=== PATIENT | female | born 1950 | race Caucasian/White ===

== ENCOUNTER 2016-05-08 07:35 | Outpatient (CLI) | payer OTHER ==
[2015-11-21 10:24] VITALS: BP 114/64
[2016-05-08 08:08] LABS: BASOPHILS % 0.2 (0.0-1.5); EOSINOPHILS % 0.8 % (0.0-6.8); MEAN CORPUSCULAR HEMOGLOBIN 32.4 pg (28.0-34.0); MONOCYTES # 0.3 # k/uL (0.0-0.9); NEUTROPHILS # 3.7 # k/uL (1.4-7.7)
[2016-05-08 08:39] LABS: eGFR (African) > 60; eGFR (Non-African) > 60
--- NOTE | 2016-05-08 13:40 | Diagnostic Imaging Report ---
[facility] [address] [facility].[address] [address] Report Submission Date: May 08, 2016 10:57:39 AM DAYCARE DIRECTOR Patient Study Name: SHARATH ALMANZA Date: May 08, 2016 10:01:20 AM DAYCARE DIRECTOR Modality Type: CT\SR Gender: F Description: CT CHEST W/ CONTRAST : 52 Institution: [facility] Physician PAMELA GAONA - OP CT of the chest, abdomen and pelvis with contrast CLINICAL HISTORY: Abdominal pain. Weight loss and dyspnea. Contrast administered: 82 mL of Omnipaque 300. TECHNIQUE: CT of the chest, abdomen and pelvis is performed in contiguous axial slices with sagittal and coronal reconstructions. FINDINGS: Lungs are free of coalescent infiltrate. Central airways are patent. Vascular structures enhance normally. Vascular calcification is present in the thoracic aorta. There is no mediastinal or hilar mass or significant adenopathy. The liver and spleen demonstrate normal attenuation without focal defect. The gallbladder is normally distended. There is no pancreatic or adrenal abnormality. The kidneys demonstrate symmetric enhancement. Vascular calcification is present in the abdominal aorta without evidence of aneurysm. The appendix is visualized and is within normal limits. Bladder is unremarkable. Uterus and adnexal structures are within normal limits. There is no free fluid in the pelvis or abdomen. Mild spondylitic changes are seen in the thoracolumbar spine. IMPRESSION: Vascular calcification. Mild thoracolumbar spondylosis and scoliosis. Electronically signed on May 08, 2016 10:57:39 AM DAYCARE DIRECTOR by: Ambrocio TRAN
== END 2016-05-08 07:36 ==
LOC: RAD 07:35
PROVIDERS: ATTEND Family Medicine
DX: R63.4 Abnormal weight loss (principal); E78.2 Mixed hyperlipidemia; E03.9 Hypothyroidism, unspecified; R10.84 Generalized abdominal pain; R06.02 Shortness of breath
CPT/HCPCS: 36415; 71260; 74177; 80053; 80061; 84443; 85025; Q9966; A9698

== ENCOUNTER 2016-08-23 11:16 | Outpatient (CLI) | payer OTHER ==
[2015-11-21 10:24] VITALS: BP 114/64
[2016-08-23 12:28] LABS: eGFR (African) > 60; eGFR (Non-African) > 60
[2016-08-23 12:49] LABS: BASOPHILS % 0.6 (0.0-1.5); EOSINOPHILS % 0.3 % (0.0-6.8); MEAN CORPUSCULAR VOLUME 93.9 fl (80.0-100.0); MONOCYTES % 4.3 % (0.0-11.0); NEUTROPHILS # 4.7 # k/uL (1.4-7.7)
--- NOTE | 2016-08-23 15:30 | Diagnostic Imaging Report ---
[facility] [address] [facility].[address] [address] Report Submission Date: August 23, 2016 2:40:56 PM CDT Patient Study Name: SHARATH ALMANZA Date: August 23, 2016 11:44:30 AM CDT Modality Type: CR Gender: F Description: CHEST : 51 Institution: [facility] Physician PAMELA GAONA - OP Chest -two views CLINICAL HISTORY: Unexplained weight loss. FINDINGS: Examination of the chest in PA and lateral views demonstrates the lungs to be hyperinflated but clear. Cardiac silhouette is within normal limits and the aorta is atherosclerotic. Mild degenerative changes are seen in the thoracic vertebrae. IMPRESSION: Aortic atherosclerosis. Hyperinflation. Thoracic spondylosis. Electronically signed on August 23, 2016 2:40:56 PM CDT by: Ambrocio TRAN
== END 2016-08-23 11:17 ==
LOC: LAB 11:16
PROVIDERS: ATTEND Family Medicine
DX: R63.4 Abnormal weight loss (principal)
CPT/HCPCS: 36415; 71020; 80053; 84443; 85025

== ENCOUNTER 2016-09-25 04:04 | Emergency (ER) | payer OTHER ==
[2016-09-25] MEDS ORDERED: DIPH,PERTUSS(ACELL),TET VAC/PF 0.5 ML DISP.SYRIN IM ONE ×2 (04:08→04:38)
[2016-09-25] MEDS ORDERED: DIAZEPAM 5 MG/ML DISP.SYRIN IM ONE ×2 (04:10→04:12)
[2016-09-25] MEDS ORDERED: DIAZEPAM 5 MG/ML DISP.SYRIN ONE (04:14)
[2016-09-25] MEDS ORDERED: LEVOFLOXACIN 500 MG TABLET PO ONE ×2 (05:10→05:11)
--- NOTE | 2016-09-25 05:12 | ED Physician Documentation ---
General Adult - HISTORIAN Historian: patient, paramedics - HPI Stated Complaint: fall, L shoulder pain Chief Complaint: General Adult Onset: minutes Timing: still present Severity: moderate Further Comments: yes (Pt is a 66 yo female [facility] pt with Parkinson's, who fell and has pain in L shoulder. Pt hit her head lightly on the R side, but she did not strike the edge of a nearby table she says, and only hit it lightly on the carpeted floor. She has not marques or abrasions on her head. No neck pain. Pt has some spasming in her L shoulder and a superficial abrasion on her R elbow.) - ROS CONST: no problems EYES/ENT: none CVS/RESP: none GI/: none MS/SKIN/LYMPH: other (superficial abrasion R elbow/forearm) - PAST HX Past History: other (HLD, HTN, GERD, Parkinson's) Allergies/Adverse Reactions: Allergies Allergy/AdvReac Type Severity Reaction Status Date / Time Penicillins AdvReac Unknown Anaphylaxis Verified 09/25/16 04:12 Sulfa (Sulfonamide AdvReac Unknown Anaphylaxis Verified 09/25/16 04:12 Antibiotics) - SOCIAL HX Smoking History: non-smoker - FAMILY HX Family History: No - VITAL SIGNS Vital Signs: Vital Signs Temp Pulse Resp BP Pulse Ox 114/64 11/21/15 10:21 - REVIEWED ASSESSMENTS Nursing Assessment Reviewed: Yes Vitals Reviewed: Yes Progress - Progress Progress: Tdap 0.5 ml IM Diazepam 5 mg IM ED Results Lab/Radiology - Orders Orders: ED Orders Category Date Time Status Diazepam [Valium] Med 09/25/16 04:14 Discontinued 5 mg .ROUTE .STK-MED ONE Diazepam [Valium] Med 09/25/16 04:10 Discontinued 5 mg IM NOW ONE Diazepam [Valium] Med 09/25/16 04:12 Discontinued 5 mg IM NOW ONE Diph,Pertuss(Acell),Tet Vac/Pf [Adacel] Med 09/25/16 04:08 Discontinued 0.5 ml IM .ONCE ONE General Adult Physical Exam - PHYSICAL EXAM GENERAL APPEARANCE: mild distress EENT: eye inspection normal, pharynx normal NECK: normal inspection, supple RESPIRATORY: no resp distress, chest non-tender, breath sounds normal CVS: reg rate & rhythm, heart sounds normal ABDOMEN: soft, no organomegaly, normal bowel sounds BACK: normal inspection, no CVA tenderness SKIN: other (superficial abrasion R elbow/forearm) EXTREMITIES: other (muscle spasm L shoulder over scapula) NEURO: oriented X3, other (baseline neuro status) Discharge Clincal Impression: fall, superficial abrasion R elbow, muscle spasm L upper back/shoulder, UTI Referrals: Joceline Penn MD [Primary Care Provider] - Condition: Stable Disposition: 04 [facility] USP Decision to Admit: NO Decision Time: 05:12
[2016-09-25 05:37] LABS: COLOR,URINE YELLOW (YELLOW)
[2016-09-25 05:38] LABS: APPEARANCE,URINE CLOUDY (CLEAR); OCCULT BLOOD,URINE NEGATIVE (NEGATIVE); PH URINE 8.5 (5.0 - 8.0); UROBILINOGEN URINE 0.2 Eu (0.2-1.0)
[2016-09-25 05:47] VITALS: BP 127/78
== END 2016-09-25 05:21 ==
LOC: ED 04:04
DX: S50.311A Abrasion of right elbow, initial encounter (principal); W19.XXXA Unspecified fall, initial encounter; Y93.9 Activity, unspecified; Y99.9 Unspecified external cause status; M62.830 Muscle spasm of back; N39.0 Urinary tract infection, site not specified
CPT/HCPCS: 81002; 87086; 87186; 90715; 99284; J3360

== ENCOUNTER 2017-04-02 10:50 | Emergency (ER) | payer OTHER ==
--- NOTE | 2017-04-02 11:41 | ED Physician Documentation ---
Wheezing - HISTORIAN Historian: patient, child (and grandson) - HPI Stated Complaint: short of breath Chief Complaint: Dyspnea Additional Information: This is a 66 year old female with an established history of anxiety and COPD. She says that she knew that it was her nerves when it started, however until the ambulance arrived, it got progressively worse. She is now breathing normally. Onset: hours Duration: gone now Initiating Event: other (anxiety). denies: upper respiratory illness, out of meds, sports, exercise, environmental allergy Associated Symptoms:: trouble breathing. denies: fever, sweating, shortness of breath Current Asthma Therapy: inhaled nebulizer Further Comments: no - ROS CONST: no problems EYES/ENT: denies: eye redness CVS: denies: heart racing, palpitations GI/: denies: none MS/SKIN/LYMPH: denies: ankle swelling NEURO/PSYCH: anxiety. denies: headache, dizziness - PAST HX Asthma: occasional attacks Lung Disease: COPD DVT/PE Risk Factors: none Other History: denies: cardiac disease Surgeries/Procedures: other (cervical conization) Allergies/Adverse Reactions: Allergies Allergy/AdvReac Type Severity Reaction Status Date / Time Penicillins AdvReac Unknown Anaphylaxis Verified 04/02/17 11:13 Sulfa (Sulfonamide AdvReac Unknown Anaphylaxis Verified 04/02/17 11:13 Antibiotics) - SOCIAL HX Smoking History: non-smoker Alcohol Use: none Drug Use: none - FAMILY HX Family History: denies: emphysema - VITAL SIGNS Vital Signs: Vital Signs Temp Pulse Resp BP Pulse Ox 98 F 79 18 102/62 99 04/02/17 10:50 04/02/17 10:50 04/02/17 10:50 04/02/17 10:50 04/02/17 10:50 - REVIEWED ASSESSMENTS Nursing Assessment Reviewed: Yes Vitals Reviewed: Yes Wheezing Physical Exam - EXAM General Appearance: no acute distress, alert EENT: eye inspection normal, ENT inspection normal, no nystagmus Neck: nml inspection Respiratory: no resp. distress, breath sounds nml, no pain on inspiration, speaks full sentences CVS: reg rate & rhythm, heart sounds normal, equal pulses Abdomen: non-tender, no organomegaly Skin: color nml Extremities: non-tender, normal range of motion, no evidence of injury Neuro/Psych: oriented x3, neuro intact Discharge Clincal Impression: Anxiety Referrals: Joceline Penn MD [Primary Care Provider] - 2 Days Condition: Good Disposition: 01 HOME, SELF-CARE Decision to Admit: NO Date of Decison to Admit: 04/02/17 Decision Time: 11:56
[2017-04-02 13:09] VITALS: BP 118/67
== END 2017-04-02 12:10 | disposition home or self-care (01) ==
LOC: ED 10:50
DX: F41.9 Anxiety disorder, unspecified (principal)
CPT/HCPCS: 99283

== ENCOUNTER 2017-07-18 07:35 | Emergency (ER) | payer OTHER ==
--- NOTE | 2017-07-18 07:42 | ED Physician Documentation ---
General Adult - HISTORIAN Historian: patient - HPI Stated Complaint: confusion Chief Complaint: Altered Mental Status Onset: other (shes not sure but is certain of seeing a family in her home last night ) Timing: better Severity: mild Further Comments: yes (she states that she has had some issues with "odd feelings" but states that she feels that is from the Parkinson's - she reports she read that disease can change you mental status at times. She states that last night she was up and noticed a family her in living room and they moved her kitchen table out and moved their kitchen table in the kitchen. She is not sure where her kitchen table out. She is confused at first on timing of when she did see the people in her house . She reports her did two months ago. She states she is not eating much and drinking less) - ROS CONST: no problems EYES/ENT: none CVS/RESP: none GI/: none MS/SKIN/LYMPH: none NEURO/PSYCH: depression, other (confusion and ) - PAST HX Past History: other (parkinson's disease, insomina, hypothyroidism, depression ) Other History: none Surgeries/Procedures: other Immunizations: UTD Allergies/Adverse Reactions: Allergies Allergy/AdvReac Type Severity Reaction Status Date / Time Penicillins AdvReac Unknown Anaphylaxis Verified 07/18/17 08:14 Sulfa (Sulfonamide AdvReac Unknown Anaphylaxis Verified 07/18/17 08:14 Antibiotics) Home Medications: Ambulatory Orders Medication Instructions Recorded Carbidopa/Levodopa [Carbidopa-Levo 1 tab PO QID 07/18/17 25-100 mg Odt] - SOCIAL HX Smoking History: non-smoker Alcohol Use: none Drug Use: none - FAMILY HX Family History: No - VITAL SIGNS Vital Signs: Vital Signs Temp Pulse Resp BP Pulse Ox 118/67 04/02/17 13:01 - REVIEWED ASSESSMENTS Nursing Assessment Reviewed: Yes Vitals Reviewed: Yes Progress - Progress Progress: 0900: results discussed with pt and daughter - Dr Penn states the pt has issues with hallucinations and should discuss further with specialist . DG General Adult Physical Exam - PHYSICAL EXAM GENERAL APPEARANCE: no distress EENT: eye inspection normal, JESSIE NECK: normal inspection, thyroid normal RESPIRATORY: no resp distress, chest non-tender, breath sounds normal CVS: reg rate & rhythm, heart sounds normal, equal pulses, no murmur ABDOMEN: soft, normal bowel sounds, no distension, non-tender BACK: normal inspection SKIN: warm/dry, normal color EXTREMITIES: non-tender, normal range of motion, no evidence of injury, no edema NEURO: oriented X3, CN's nml as tested, motor nml, sensation nml, mood/affect nml, cognition normal (although discussion she does know she was confused last night ) Discharge Clincal Impression: Hallucinations Referrals: Joceline Penn MD [Primary Care Provider] - 2 Days Comments: 1. Follow up with specialist for increased symptoms 2. Increase intake 3. Return to ER for any increasing concerns Condition: Stable Disposition: 01 HOME, SELF-CARE Decision to Admit: NO Date of Decison to Admit: 07/18/17 Decision Time: 09:26
[2017-07-18] MEDS ORDERED: 0.9 % SODIUM CHLORIDE 1,000 ML IV ONE (07:54)
[2017-07-18 07:56] VITALS: BP 103/68
[2017-07-18 08:21] LABS: BASOPHILS % 0.2 (0.0-1.5); EOSINOPHILS % 0.8 % (0.0-6.8); MEAN CORPUSCULAR HEMOGLOBIN 31.5 pg (28.0-34.0); MEAN CORPUSCULAR VOLUME 91.7 fl (80.0-100.0); NEUTROPHILS # 3.8 # k/uL (1.4-7.7)
[2017-07-18 08:43] LABS: APPEARANCE,URINE CLEAR (CLEAR); COLOR,URINE YELLOW (YELLOW); OCCULT BLOOD,URINE NEGATIVE (NEGATIVE); PH URINE 7.5 (5.0 - 8.0); UROBILINOGEN URINE 0.2 Eu (0.2-1.0)
[2017-07-18 08:50] LABS: eGFR (African) > 60; eGFR (Non-African) > 60
[2017-07-18 10:50] LABS: CANNABINOIDS NEGATIVE ng/mL (< 50); METHYLENEDIOXYMETHAMPHETAMINE NEGATIVE ng/mL (<500)
--- NOTE | 2017-07-18 19:46 | Diagnostic Imaging Report ---
SISSY GREENE~ [facility] [address] [facility] [address] [place], [place]. [address] ~ ~ ~ ~ Report Submission Date: Jul 18, 2017 9:02:01 AM CDT Patient ~ Study Name: SHARATH ALMANZA ~ Date: Jul 18, 2017 8:13:06 AM CDT ~ Modality Type: CT\SR Gender: F ~ Description: CT BRAIN W/O CONTRAST : 52 ~ Institution: [facility] Physician: SISSY GREENE ~ ~ ~ Examination: CT head without contrast History:~CT HEAD W/O, CONFUSION TODAY, PT STATES SHE SAW PEOPLE IN HER HOUSE THAT WERE NOT ACTUALLY THERE (Hx) Comparison exam: None available Technique: Noncontrast head CT protocol. Findings: Ventricles and sulci are prominent, though consistent for patient age. Cerebrocerebellar parenchyma demonstrates periventricular low attenuation consistent with small vessel disease. No evidence for parenchymal hemorrhage. No evidence for mass or mass effect. No midline shift. No extra axial fluid collections. Partial visualization of the paranasal sinuses, mastoid air cells, orbits, skull and scalp without gross irregularity. Streak artifact from dental hardware. Impression: Age related changes. No acute parenchymal process. No hemorrhage. ~ Electronically signed on Jul 18, 2017 9:02:01 AM CDT by: Abner TRAN
== END 2017-07-18 09:53 | disposition home or self-care (01) ==
LOC: ED 07:35
DX: R41.82 Altered mental status, unspecified (principal); G20 Parkinson's disease; F32.9 Major depressive disorder, single episode, unspecified
CPT/HCPCS: 70450; 80053; 81002; 82140; 85025; 85610; 87086; 93005; G0481; J7030; 80377; 96365; 96366; 99284; S1016

== ENCOUNTER 2017-10-05 21:24 | Emergency (ER) | payer OTHER ==
--- NOTE | 2017-10-05 21:38 | ED Physician Documentation ---
Fall - HISTORIAN Historian: patient - HPI Stated Complaint: fall and hit head Chief Complaint: Fall Onset: just prior to arrival Where: home Context: slipped, lost balance (due to history of parkinsons she states she does loose balance ) r: mild Associated Symptoms:: no loss of consciousness Location of Pain/Injury: head Injury to Right Extremity: none Injury to Left Extremity: none Further Comments: yes (she states she does get off balance quite often due to parkinsons. She reports approx 1 hour ago she was walking and "just tipped over " denies any dizziness or other issues causing the fall. She did hit the back of her head. Denies any LOC. She states the area where she hit on her head is sore to touch but denies any headache, no N/V or other symtpoms) - ROS CONST: no problems NEURO: denies: dizziness, anxiety, depression MS/SKIN/LYMPH: denies: weakness, numbness, neck pain, back pain, ankle swelling , leg swelling, rash EYES/ENT: denies: problems with vision CVS/RESP: denies: shortness of breath GI/: denies: nausea, vomiting - PAST HX Past History: other (parkinsons - hyperlipidemia ) Immunizations: UTD Allergies/Adverse Reactions: Allergies Allergy/AdvReac Type Severity Reaction Status Date / Time Penicillins AdvReac Unknown Anaphylaxis Verified 10/05/17 21:35 Sulfa (Sulfonamide AdvReac Unknown Anaphylaxis Verified 10/05/17 21:35 Antibiotics) Home Medications: Ambulatory Orders Medication Instructions Recorded Carbidopa/Levodopa [Carbidopa-Levo 1 tab PO QID 07/18/17 25-100 mg Odt] - SOCIAL HX Smoking History: non-smoker Alcohol Use: none Drug Use: none - FAMILY HX Family History: none - VITAL SIGNS Vital Signs: Vital Signs Temp Pulse Resp BP Pulse Ox 103/68 07/18/17 09:53 - REVIEWED ASSESSMENTS Nursing Assessment Reviewed: Yes Vitals Reviewed: Yes Progress - Progress Progress: 2230: results discussed with pt and daughter at bedside. No questions. Plan discussed and they are agreeable DG ED Results Lab/Radiology - Radiology Radiology Impressions: Computed tomography head without contrast History: Fall with posterior head injury Findings: Transverse brain sections are obtained without contrast. The prior exam has not been provided for comparison. There is no visible scalp hematoma. Mild global brain atrophy is present. Durant- white differentiation is intact. There is no intracranial hemorrhage. The skull is intact. Visualized sinuses and mastoid air cells are clear. Impression: Mild brain atrophy. Electronically signed on Oct 05, 2017 10:27:15 PM CDT by: Adama michael Parks Physical Exam - Physical Exam General Appearance: no acute distress, alert Head: non-tender, no swelling, no obvious injury Neck: non-tender, painless ROM Eye: JESSIE ENT: nml external inspection, no oral injury, airway nml Resp/CVS: chest non-tender, no ecchymosis, breath sounds nml, no resp. distress , heart sounds nml Abdomen: soft, no organomegaly, normal bowel sounds, no distension Neuro: oriented x3, CN's nml as tested, sensation nml, motor nml, mood/affect nml, direct care specialist nml, reflexes nml, direct care specialist symmetrical Skin: color nml, no rash Back: normal inspection, no CVA tenderness, no vertebral tenderness Extremities: atraumatic, pelvis stable, hips non-tender, no pedal edema, nml ROM , nml color/temp Joint: joints nml, nml ROM, Nml gait/weight bearing - Chayo Coma Score Eyes Open: Spontaneous Speech: Oriented Motor: Obeys Commands Discharge Clincal Impression: Fall Qualifiers: Encounter type: initial encounter Qualified Code(s): W19.XXXA - Unspecified fall, initial encounter Head injury Qualifiers: Encounter type: initial encounter Qualified Code(s): S09.90XA - Unspecified injury of head, initial encounter Referrals: Joceline Penn MD [Primary Care Provider] - 2 Days Additional Instructions: 1. Tylenol or Ibuprofen for pain as directed 2. Move positions slowly 3. Monitor for any further symptoms of concern. N/V or mood changes, weakness or other concerns 4. See PCP in 2-4 days for follow up 5. Return to ER for any concerns Condition: Stable Disposition: 01 HOME, SELF-CARE Decision to Admit: NO Date of Decison to Admit: 10/05/17 Decision Time: 22:30
[2017-10-05 22:30] LABS: BASOPHILS % 0.5 (0.0-1.5); MEAN CORPUSCULAR HEMOGLOBIN 32.3 pg (28.0-34.0); MEAN CORPUSCULAR VOLUME 94.8 fl (80.0-100.0); MONOCYTES % 6.6 % (0.0-11.0); NEUTROPHILS # 3.3 # k/uL (1.4-7.7)
[2017-10-05 22:34] LABS: eGFR (African) > 60; eGFR (Non-African) > 60
--- NOTE | 2017-10-05 22:37 | Diagnostic Imaging Report ---
[facility] [address] [facility] [address] [place] [address]. [id number] Report Submission Date: Oct 05, 2017 10:27:15 PM CDT Patient Study Name: SHARATH ALMANZA Date: Oct 05, 2017 10:09:09 PM CDT Modality Type: CT\SR Gender: F Description: CT BRAIN W/O CONTRAST : 52 Institution: [facility] Physician: SISSY GREENE Computed tomography head without contrast History: Fall with posterior head injury Findings: Transverse brain sections are obtained without contrast. The prior exam has not been provided for comparison. There is no visible scalp hematoma. Mild global brain atrophy is present. Durant -white differentiation is intact. There is no intracranial hemorrhage. The skull is intact. Visualized sinuses and mastoid air cells are clear. Impression: Mild brain atrophy. Electronically signed on Oct 05, 2017 10:27:15 PM CDT by: Adama TRAN
[2017-10-05 22:47] VITALS: BP 97/56
== END 2017-10-05 22:45 | disposition home or self-care (01) ==
LOC: ED 21:24
DX: S09.90XA Unspecified injury of head, initial encounter (principal); W19.XXXA Unspecified fall, initial encounter; Y92.9 Unspecified place or not applicable; Y93.9 Activity, unspecified; Y99.9 Unspecified external cause status
CPT/HCPCS: 70450; 80053; 85025; 99284

== ENCOUNTER 2017-12-05 22:16 | Emergency (ER) | payer OTHER ==
--- NOTE | 2017-12-05 22:27 | ED Physician Documentation ---
Fall - HISTORIAN Historian: patient - HPI Stated Complaint: fall and hit head Chief Complaint: Fall Onset: just prior to arrival Where: home Context: slipped r: mild Associated Symptoms:: no loss of consciousness Location of Pain/Injury: head Injury to Right Extremity: none Injury to Left Extremity: none Further Comments: yes (She states she did slip and hit the left lateral side of her head. She denies any pain other than with palpation of the area. She states she has no other compalints. She states that she did not pass out. She has no other complaints) - ROS CONST: no problems NEURO: denies: dizziness, anxiety MS/SKIN/LYMPH: denies: weakness, numbness, neck pain, back pain EYES/ENT: none CVS/RESP: none GI/: denies: problems urinating - PAST HX Past History: other (parkinsons ) Immunizations: UTD Allergies/Adverse Reactions: Allergies Allergy/AdvReac Type Severity Reaction Status Date / Time Penicillins AdvReac Unknown Anaphylaxis Verified 10/05/17 21:35 Sulfa (Sulfonamide AdvReac Unknown Anaphylaxis Verified 10/05/17 21:35 Antibiotics) Home Medications: Ambulatory Orders Medication Instructions Recorded Carbidopa/Levodopa [Carbidopa-Levo 1 tab PO QID 07/18/17 25-100 mg Odt] - SOCIAL HX Smoking History: non-smoker Alcohol Use: none Drug Use: none - FAMILY HX Family History: none - VITAL SIGNS Vital Signs: Vital Signs Temp Pulse Resp BP Pulse Ox 97/56 10/05/17 22:45 - REVIEWED ASSESSMENTS Nursing Assessment Reviewed: Yes Vitals Reviewed: Yes Progress - Progress Progress: 2345: denies any complaints. Daughter is in route to pick her up. No other concerns . Will discharge with follow up with PCP in 2-4 days or return for any concerns DG ED Results Lab/Radiology - Orders Orders: ED Orders Category Date Time Status Place IV Lock 1T Care 12/05/17 22:[address] BRAIN W/O CONTRAST Stat Exams 12/05/17 Ordered ALCOHOL MEDICAL USE ONLY Routine Lab 12/05/17 Ordered CBC/PLATELET/DIFF Stat Lab 12/05/17 22:23 Ordered CMP Routine Lab 12/05/17 Ordered DRUG SCREEN URINE MEDICAL ONLY Routine Lab 12/05/17 Ordered PT-INR Routine Lab 12/05/17 Ordered URINALYSIS Routine Lab 12/05/17 Ordered 0.9 % Sodium Chloride [Normal Saline] 1,000 ml Med 12/05/17 22:30 Ordered IV Q10H EKG WITH COMPARISON Stat Ther 12/05/17 Ordered Fall Physical Exam - Physical Exam General Appearance: no acute distress, alert. No: c-collar [employer] DES[employer]ER, backboard [employer] DES[employer]ER Head: non-tender, trauma (small nickel size area on left lateral side of head mildly raised. no open areas. ) Neck: non-tender, painless ROM Eye: JESSIE ENT: nml external inspection Resp/CVS: chest non-tender, breath sounds nml, no resp. distress, heart sounds nml Abdomen: soft Neuro: oriented x3 Discharge Clincal Impression: Head injury Qualifiers: Encounter type: initial encounter Qualified Code(s): S09.90XA - Unspecified injury of head, initial encounter Referrals: Joceline Penn MD [Primary Care Provider] - 2 Days Additional Instructions: 1. Change position slowly 2. Follow up with PCP in 2-4 days 3. Return to ER for any concerns Condition: Stable Disposition: 01 HOME, SELF-CARE Decision to Admit: NO Date of Decison to Admit: 12/05/17 Decision Time: 23:48
[2017-12-05] MEDS ORDERED: 0.9 % SODIUM CHLORIDE 1,000 ML IV SCH (22:30)
--- NOTE | 2017-12-05 22:48 | Diagnostic Imaging Report ---
SISSY GREENE [facility] [address] [facility] [address] [address] Report Submission Date: Dec 05, 2017 10:46:38 PM CDT Patient Study Name: SHARATH ALMANZA Date: Dec 05, 2017 10:28:21 PM CDT Modality Type: CT Gender: F Description: CT BRAIN W/O CONTRAST : 52 Institution: [facility] Physician: SISSY GREENE Computed tomography head without contrast History: Fall with left-sided head injury Findings: Transverse brain sections are obtained without contrast and compared to the 10/05/2017 scan. Mild global brain atrophy is unchanged. Durant-white differentiation is intact. There is no intracranial hemorrhage or significant soft tissue contusion. The skull is intact. Visualized sinuses and mastoid air cells are clear. Impression: Mild global brain atrophy without change. Electronically signed on Dec 05, 2017 10:46:38 PM CDT by: Adama TRAN
[2017-12-05] MEDS ORDERED: 0.9 % SODIUM CHLORIDE 1,000 ML IV ONE (22:49)
[2017-12-05 23:08] LABS: BASOPHILS % 0.4 (0.0-1.5); EOSINOPHILS % 1.5 % (0.0-6.8); MEAN CORPUSCULAR VOLUME 93.4 fl (80.0-100.0); MONOCYTES % 6.4 % (0.0-11.0)
[2017-12-05 23:19] LABS: eGFR (Non-African) > 60
[2017-12-06 00:39] VITALS: BP 114/67
[2017-12-06 06:36] LABS: APPEARANCE,URINE CLEAR (CLEAR); COLOR,URINE YELLOW (YELLOW); OCCULT BLOOD,URINE NEGATIVE (NEGATIVE); UROBILINOGEN URINE 0.2 Eu (0.2-1.0)
[2017-12-06 15:41] LABS: CANNABINOIDS NEGATIVE ng/mL (< 50); METHYLENEDIOXYMETHAMPHETAMINE NEGATIVE ng/mL (<500)
== END 2017-12-06 00:15 | disposition home or self-care (01) ==
LOC: ED 22:16
DX: S09.90XA Unspecified injury of head, initial encounter (principal); W19.XXXA Unspecified fall, initial encounter; Y92.9 Unspecified place or not applicable; Y93.9 Activity, unspecified; Y99.9 Unspecified external cause status
CPT/HCPCS: 70450; 80053; 81002; 85025; 85610; G0480; G0481; 80320; 80377; 96365; 99284; S1016

== ENCOUNTER 2018-03-05 06:33 | Emergency (ER) | payer OTHER ==
--- NOTE | 2018-03-05 07:25 | ED Physician Documentation ---
Fall - HISTORIAN Historian: patient - HPI Stated Complaint: Fall with back pain Chief Complaint: Fall Additional Information: Patient presents to ED after falling in her bathroom at home. She complains of left hip pain. She states she hit her head on the toilet and then the floor but did not lose consciousness. She has chronic back pain and states her back hurts too. Patient states it [place] when she urinates. She has a history of frequent UTIs. Onset: just prior to arrival Where: work Context: slipped r: mild Associated Symptoms:: no loss of consciousness Location of Pain/Injury: head, lower extremity Injury to Left Extremity: hip - ROS CONST: no problems NEURO: denies: dizziness MS/SKIN/LYMPH: denies: weakness, numbness EYES/ENT: denies: problems with vision CVS/RESP: denies: chest pain, shortness of breath GI/: denies: nausea, vomiting - PAST HX Past History: other (parkinsons disease) Allergies/Adverse Reactions: Allergies Allergy/AdvReac Type Severity Reaction Status Date / Time Penicillins AdvReac Unknown Anaphylaxis Verified 03/05/18 07:24 Sulfa (Sulfonamide AdvReac Unknown Anaphylaxis Verified 03/05/18 07:24 Antibiotics) Home Medications: Ambulatory Orders Medication Instructions Recorded Alprazolam [Xanax] 0.25 mg PO TID PRN 03/05/18 Quetiapine Fumarate 50 mg PO BID 03/05/18 - SOCIAL HX Smoking History: non-smoker Alcohol Use: none Drug Use: none - FAMILY HX Family History: none - VITAL SIGNS Vital Signs: Vital Signs Temp Pulse Resp BP Pulse Ox 97.8 F 92 H 18 134/55 100 03/05/18 06:35 03/05/18 06:35 03/05/18 06:35 03/05/18 06:35 03/05/18 06:35 - REVIEWED ASSESSMENTS Nursing Assessment Reviewed: Yes Vitals Reviewed: Yes Progress - Progress Progress: 0830 Discussed with patient xray results showing left hip fracture. Patient would like to go to the [facility]. Last oral intake was around [facility]. 0835 Discussed with [facility] transfer line. Awaiting return call. [address] Ramos [facility]. Agrees with transfer. Will call back with room number. - EKG/XRAY/CT EKG: NSR Comments: 92 bpm ED Results Lab/Radiology - Lab Results Lab Results: UA negative for infection. Blood - neg, Nitrate - neg, Leukocytes 1+. Catch from bed callaway. - Radiology Radiology Impressions: Examination: CT head without contrast History: Fall OFF COMMODE YESTERDAY. LEFT HIP PAIN. (Hx) Comparison exam: None available for direct review. Technique: Noncontrast head CT protocol. Findings: Ventricles and sulci are prominent. Cerebrocerebellar parenchyma demonstrates periventricular low attenuation consistent with small vessel disease. No evidence for parenchymal hemorrhage. No evidence for mass or mass effect. No midline shift. No extra axial fluid collections. Partial visualization of the paranasal sinuses, mastoid air cells, orbits, skull and scalp without gross irregularity. Streak artifact from dental hardware. Impression: Age related changes. No acute parenchymal process. No hemorrhage. Electronically signed on Mar 05, 2018 8:15:44 AM SECURITY INCIDENT RESPONSE SPECIALIST by: Abner Vaughn Examination: Plain film pelvis History: FALL OFF COMMODE YESTERDAY. LEFT HIP PAIN. (Hx) Comparison exams: None provided Findings: Single view of the pelvis demonstrates cortical irregularity involving the left femoral neck. Right femur without irregularity. No dislocation. Lumbar spine and sacroiliac joint degenerative changes. Pubic symphysis degenerative changes. No other acute appearing cortical irregularity. No soft tissue abnormality. Impression: Left femoral neck fracture. Better cortical marginal delineation could be obtained with CT scan if clinically warranted. Electronically signed on Mar 05, 2018 8:20:38 AM SECURITY INCIDENT RESPONSE SPECIALIST by: Abner Vaughn Examination: Plain film left hip History: FALL OFF COMMODE YESTERDAY. LEFT HIP PAIN. (Hx) Comparison exams: None provided Findings: 2 views of the left hip demonstrates cortical irregularity involving the femoral neck. No dislocation. No soft tissue abnormality. Impression: Femoral neck fracture. Better cortical marginal delineation could be obtained with CT scan if clinically warranted. Electronically signed on Mar 05, 2018 8:18:47 AM SECURITY INCIDENT RESPONSE SPECIALIST by: Abner Vaughn - Orders Orders: ED Orders Category Date Time Status CT BRAIN W/O CONTRAST Stat Exams 03/05/18 Ordered LT HIP 2VIEW COMPLETE [RAD] Stat Exams 03/05/18 Ordered PELVIS AP 1 OR 2 VIEWS [RAD] Stat Exams 03/05/18 Ordered UA W MICRO [UA W/MICRO IF INDICATED] Routine Lab 03/05/18 07:23 Ordered Fall Physical Exam - Physical Exam General Appearance: no acute distress, alert. 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 No: rib tenderness Abdomen: soft, normal bowel sounds, non-tender Neuro: oriented x3 Skin: color nml, no rash Back: normal inspection, no CVA tenderness, no vertebral tenderness Extremities: atraumatic, pelvis stable, other (left hip tenderness) Joint: nml ROM - [place] Coma Score Eyes Open: Spontaneous Speech: Oriented Motor: Obeys Commands Discharge Clincal Impression: Femoral neck fracture Qualifiers: Encounter type: initial encounter Fracture type: closed Laterality: left Qualified Code(s): S72.002A - Fracture of unspecified part of neck of left femur, initial encounter for closed fracture Referrals: Joceline Penn MD [Primary Care Provider] - 2 Days Disposition: 02 [facility] HOSP Decision to Admit: [id number] Date of Decison to Admit: 03/05/18 Decision Time: 08:52
--- NOTE | 2018-03-05 08:17 | Diagnostic Imaging Report ---
ODNG OLSEN [facility] [address] [facility] [address] [place], [place]. [address] Report Submission Date: Mar 05, 2018 8:15:44 AM SLAG MIXER Patient Study Name: SHARATH ALMANZA Date: Mar 05, 2018 7:43:28 AM SLAG MIXER Modality Type: CT Gender: F Description: CT BRAIN W/O CONTRAST : 52 Institution: [facility] Physician: DONG OLSEN Examination: CT head without contrast History: Fall OFF COMMODE YESTERDAY. LEFT HIP PAIN. (Hx) Comparison exam: None available for direct review. Technique: Noncontrast head CT protocol. Findings: Ventricles and sulci are prominent. Cerebrocerebellar parenchyma demonstrates periventricular low attenuation consistent with small vessel disease. No evidence for parenchymal hemorrhage. No evidence for mass or mass effect. No midline shift. No extra axial fluid collections. Partial visualization of the paranasal sinuses, mastoid air cells, orbits, skull and scalp without gross irregularity. Streak artifact from dental hardware. Impression: Age related changes. No acute parenchymal process. No hemorrhage. Electronically signed on Mar 05, 2018 8:15:44 AM SLAG MIXER by: Abner TRAN
--- NOTE | 2018-03-05 08:20 | Diagnostic Imaging Report ---
DONG OLSEN [facility] [address] [facility] [address] [place] [address]. [id number] Report Submission Date: Mar 05, 2018 8:18:47 AM BULB SORTER Patient Study Name: SHARATH ALMANZA Date: Mar 05, 2018 7:45:41 AM BULB SORTER Modality Type: DX Gender: F Description: PELVIS : 52 Institution: [facility] Physician: DONG OLSEN Examination: Plain film left hip History: FALL OFF COMMODE YESTERDAY. LEFT HIP PAIN. (Hx) Comparison exams: None provided Findings: 2 views of the left hip demonstrates cortical irregularity involving the femoral neck. No dislocation. No soft tissue abnormality. Impression: Femoral neck fracture. Better cortical marginal delineation could be obtained with CT scan if clinically warranted. Electronically signed on Mar 05, 2018 8:18:47 AM BULB SORTER by: Abner TRAN
--- NOTE | 2018-03-05 08:24 | Diagnostic Imaging Report ---
DONG OLSEN [facility] [address] [facility] [address] [place] [address]. [id number] Report Submission Date: Mar 05, 2018 8:18:47 AM NIKE ATHLETE Patient Study Name: SHARATH ALMANZA Date: Mar 05, 2018 7:45:41 AM NIKE ATHLETE Modality Type: DX Gender: F Description: PELVIS : 52 Institution: [facility] Physician: DONG OLSEN Examination: Plain film left hip History: FALL OFF COMMODE YESTERDAY. LEFT HIP PAIN. (Hx) Comparison exams: None provided Findings: 2 views of the left hip demonstrates cortical irregularity involving the femoral neck. No dislocation. No soft tissue abnormality. Impression: Femoral neck fracture. Better cortical marginal delineation could be obtained with CT scan if clinically warranted. Electronically signed on Mar 05, 2018 8:18:47 AM NIKE ATHLETE by: Abner TRAN
[2018-03-05] MEDS ORDERED: fentaNYL CITRATE/PF 100 MCG/2 ML AMP IVP ONE (08:29)
[2018-03-05 09:31] VITALS: BP 125/66
--- NOTE | 2018-03-05 10:06 | Diagnostic Imaging Report ---
DANNY JJ [facility] [address] [facility] [address] [place] [address]. [id number] Report Submission Date: Mar 05, 2018 9:45:16 AM REGULATORY AFFAIRS COORDINATOR Patient Study Name: SIMONA HENDRIX Date: Mar 05, 2018 9:16:52 AM REGULATORY AFFAIRS COORDINATOR Modality Type: CT Gender: M Description: CT CHEST W/ CONTRAST : [birth year] Institution: [facility] Physician: DANNY JJ CT chest with contrast History: Abnormal abdominal CT. Follow-up pleural fluid Technique: Helically acquired images were obtained through the chest following IV contrast. Findings: Mild emphysematous findings are present at the lung apices. There is a small region of atelectasis along the left major fissure. There is a small right and small to moderate size left pleural effusion. There is a single right paratracheal lymph node measuring 1 cm in short axis dimension. Coronary artery calcifications are present. There is no pericardial effusion. There is left ventricular enlargement. Thoracic aortic atherosclerosis is present. Please see separate CT abdomen report with regard to massive retroperitoneal lymphadenopathy. There has been a median sternotomy. Otherwise, no osseous abnormalities are noted. Impression: Small right and small to moderate sized left pleural effusion. Single right paratracheal lymph node measuring 1 cm in short axis dimension. Coronary artery calcifications. Cardiomegaly with left ventricular enlargement. Mild emphysema Massive retroperitoneal lymphadenopathy as discussed in a CT abdomen report from February 28, 2018 Electronically signed on Mar 05, 2018 9:45:16 AM REGULATORY AFFAIRS COORDINATOR by: Arlette TRAN
[2018-03-05 10:59] LABS: APPEARANCE,URINE CLEAR (CLEAR); COLOR,URINE YELLOW (YELLOW); OCCULT BLOOD,URINE NEGATIVE (NEGATIVE); UROBILINOGEN URINE 0.2 Eu (0.2-1.0)
== END 2018-03-05 09:15 | disposition short-term general hospital (02) ==
LOC: ED 06:33
DX: S72.002A Fracture of unspecified part of neck of left femur, initial encounter for closed fracture (principal); W01.198A Fall on same level from slipping, tripping and stumbling with subsequent striking against other object, initial encounter; Y93.9 Activity, unspecified; Y92.002 Bathroom of unspecified non-institutional (private) residence as the place of occurrence of the external cause
CPT/HCPCS: 70450; 71045; 72170; 73502; 81002; 87086; 93005; 96374; 99285; J3010; S1016

== ENCOUNTER 2018-06-12 09:26 | Emergency (ER) | payer OTHER ==
[2018-06-12 09:45] VITALS: BP 76/55
[2018-06-12] MEDS: 0.9 % SODIUM CHLORIDE 1,000 ML IV ONE (10:05)
[2018-06-12 10:29] LABS: BASOPHILS % 0.3 (0.0-1.5); EOSINOPHILS % 1.4 % (0.0-6.8); MEAN CORPUSCULAR HEMOGLOBIN 31.6 pg (28.0-34.0); MONOCYTES % 8.8 % (0.0-11.0); NEUTROPHILS # 3.4 # k/uL (1.4-7.7)
[2018-06-12 10:50] LABS: eGFR (Non-African) > 60
[2018-06-12 12:33] LABS: APPEARANCE,URINE CLEAR (CLEAR); COLOR,URINE YELLOW (YELLOW); OCCULT BLOOD,URINE NEGATIVE (NEGATIVE); UROBILINOGEN URINE 0.2 Eu (0.2-1.0)
--- NOTE | 2018-06-12 12:35 | ED Physician Documentation ---
Fall - HISTORIAN Historian: patient - HPI Stated Complaint: low blood pressure Chief Complaint: Fall Onset: just prior to arrival Where: other ([facility]) Associated Symptoms:: no loss of consciousness Injury to Right Extremity: none Injury to Left Extremity: none Further Comments: yes (67 year old female patient brought in after fall at [facility]. No injuries from fall per staff or EMS. Patient was found to be hypotensive - EMS gave part of NS in route. IV became disconnected; patient recieved only 200-300cc. Fluids infusing on arrival. No complaints of pain from patient. Per [facility] - patient is mobile and pleasantly confused at times.) - ROS CONST: no problems NEURO: dizziness, anxiety, depression, other MS/SKIN/LYMPH: denies: weakness, numbness, neck pain, back pain, ankle swelling, leg swelling, rash, other EYES/ENT: none CVS/RESP: none GI/: denies: problems urinating, nausea, vomiting, other - PAST HX Past History: other (dementia, Parkinsons) Allergies/Adverse Reactions: Allergies Allergy/AdvReac Type Severity Reaction Status Date / Time Penicillins AdvReac Unknown Anaphylaxis Verified 06/12/18 09:53 Sulfa (Sulfonamide AdvReac Unknown Anaphylaxis Verified 06/12/18 09:53 Antibiotics) Home Medications: Ambulatory Orders Medication Instructions Recorded Quetiapine Fumarate 50 mg PO BID 03/05/18 Calcium Carbonate/Vitamin D3 1 tab PO BID 06/12/18 [Oyster Shell 500-Vit D3 200 Tb] Mirabegron [Myrbetriq] 25 mg PO HS 06/12/18 Sennosides [Senna] 1 tab PO BID 06/12/18 - SOCIAL HX Smoking History: non-smoker - FAMILY HX Family History: none - VITAL SIGNS Vital Signs: Vital Signs Temp Pulse Resp BP Pulse Ox 98.7 F 76 16 76/55 96 06/12/18 09:26 06/12/18 09:26 06/12/18 09:26 06/12/18 09:26 06/12/18 09:26 - REVIEWED ASSESSMENTS Nursing Assessment Reviewed: Yes Vitals Reviewed: Yes Progress - Progress Progress: Mild hypotension in ER - additional liter of NS given in ER. BP improved. No injury noted from fall. Patient able to ambulate with nursing at [place]. Gait steady. No complaints of pain. Patient sitting up in chair eating lunch tray. Hypotension resolved. ED Results Lab/Radiology - Lab Results Lab Results: Lab Results 06/12/18 06/12/18 06/12/18 10:25 10:15 10:15 WBC 5.30 K/ul K/ul (4.00-12.00) RBC 3.55 M/ul L M/ul (3.90-5.20) Hgb 11.2 g/dL L g/dL (12.0-16.0) Hct 33.1 % L % (34.5-46.5) MCV 93.0 fl fl (80.0-100.0) MCH 31.6 pg pg (28.0-34.0) MCHC 33.9 g/dL g/dL (30.0-36.0) RDW 12.8 % % (11.3-14.3) Plt Count 170 K/mm3 K/mm3 (130-400) Neut % (Auto) 63.4 % % (39.0-79.0) Lymph % (Auto) 26.1 % % (16.0-50.0) Mason % (Auto) 8.8 % % (0.0-11.0) Eos % (Auto) 1.4 % % (0.0-6.8) Baso % (Auto) 0.3 (0.0-1.5) Neut # (Auto) 3.4 # k/uL # k/uL (1.4-7.7) Lymph # (Auto) 1.4 # k/uL # k/uL (0.6-4.0) Mason # (Auto) 0.5 # k/uL # k/uL (0.0-0.9) Eos # (Auto) 0.1 # k/uL # k/uL (0.0-0.6) Baso # (Auto) 0.0 # k/uL # k/uL (0.0-0.5) Sodium 143 mmol/L mmol/L (136-145) Potassium 3.5 mmol/L mmol/L (3.5-5.1) Chloride 108 mmol/L H mmol/L (98-107) Carbon Dioxide 26 mmol/L mmol/L (22-30) BUN 17 mg/dL mg/dL (7-17) Creatinine 0.59 mg/dL mg/dL (0.52-1.04) Estimated Creat Clear 102 Est GFR ( Amer) > 60 (60 - ) Est GFR (Non-Af Amer) > 60 (60 - ) Glucose 88 mg/dL mg/dL (74-106) Calcium 9.4 mg/dL mg/dL (8.4-10.2) Total Bilirubin 0.8 mg/dL mg/dL (0.2-1.3) AST 10 U/L L U/L (15-46) ALT < 6 U/L L U/L (13-69) Alkaline Phosphatase 48 U/L U/L (38-126) Total Protein 6.2 g/dL L g/dL (6.3-8.2) Albumin 3.6 g/dL g/dL (3.5-5.0) Influenza A (Rapid) Negative (NEGATIVE) Influenza B (Rapid) Negative (NEGATIVE) - Radiology Radiology Impressions: CT abdomen and pelvis with contrast History: Elevated white blood cell count Technique: Helically acquired images were obtained from the hemidiaphragms to the pelvic floor following IV but no oral contrast. Findings: The gallbladder is abnormal, likely filled with numerable tiny stones. Right upper quadrant ultrasound would be recommended for further assessment in this regard. The liver, spleen, pancreas and left kidney are unremarkable. There is a tiny low-density nodule of the right adrenal gland with Hounsfield units of 13, consistent with an adenoma. This nodule measures 8 mm in greatest dimension. There is mild fullness of the left adrenal gland. Projecting anteriorly from the mid pole of the right kidney, there is a cystic lesion with several internal septations which appear thin by CT. This lesion measures 4.0 x 2.0 cm in greatest dimension. Ultrasound would be helpful for further assessment of the internal contents of this cystic lesion. There is aortoiliac atherosclerosis without aneurysm. Small and large bowel loops are normal in caliber. The appendix is normal. There has been a hysterectomy. There is no free fluid in the abdomen or pelvis. Bladder is unremarkable. There is no hydronephrosis and no ureteral stones are seen. Lung bases are clear aside from minor posterior dependent atelectasis. Impression: Mild posterior bibasilar dependent atelectasis. Abnormal gallbladder, probably filled with multiple tiny stones but right upper quadrant ultrasound would be recommended for further assessment. Additionally, there is a cystic lesion anteriorly at the midpole of the right kidney which contains septations which do appear thin by CT but ultrasound would be helpful for further assessment in this regard as well. No hydronephrosis. No renal or ureteral stones. Normal appendix. Electronically signed on Jun 12, 2018 1:55:54 PM MUSIC PUBLICIST by: Arlette Gonzales Examination: PA and lateral chest. History: Evaluate lung ivy. Comparison exam: None available. Findings: PA and lateral views of the chest demonstrates a normal cardiac and mediastinal silhouette. No focal infiltrate. No blunting of the costophrenic margins. Osseous structures are appropriate for age. Impression: No acute pulmonary process. Electronically signed on Jun 12, 2018 1:41:24 PM MUSIC PUBLICIST by: Abner Vaughn - Orders Orders: ED Orders Category Date Time Status CBC/PLATELET/DIFF Stat Lab 06/12/18 10:15 Completed CMP Stat Lab 06/12/18 10:15 Completed INFLUENZA A&B Stat Lab 06/12/18 10:25 Completed URINE HCG Stat Lab 06/12/18 12:00 Received 0.9 % Sodium Chloride [Normal Saline] 1,000 ml Med 06/12/18 09:45 Discontinued IV NOW Fall Physical Exam - Physical Exam General Appearance: no acute distress, alert Eye: JESSIE, EOMI, lids & conjunct. nml Resp/CVS: chest non-tender, no ecchymosis, breath sounds nml, no resp. distress, heart sounds nml Abdomen: soft, no organomegaly, normal bowel sounds, no abdominal bruit, no distension Neuro: motor nml, disoriented, other (Patient follows commands, speech is very fast and intermittently inappropriate at times; can answer simple questions, HOYOS x 4. No focal neuro deficit. History of dementia.) Skin: color nml, no rash, nml palp., dry Back: normal inspection, no CVA tenderness Extremities: atraumatic, pelvis stable, hips non-tender, no pedal edema, nml ROM, nml color/temp - [place] Coma Score Eyes Open: Spontaneous Speech: Confused Motor: Obeys Commands Discharge Clincal Impression: Hypotension Qualifiers: Hypotension type: unspecified hypotension type Qualified Code(s): I95.9 - Hypotension, unspecified Fall Qualifiers: Encounter type: initial encounter Qualified Code(s): W19.XXXA - Unspecified fall, initial encounter Referrals: Joceline Penn MD [Primary Care Provider] - 2 Days Additional Instructions: Continue all current treatments and medications. Increase fluid intake to at least 64 oz per day. Fall precautions. Condition: Stable Disposition: 01 HOME, SELF-CARE Decision to Admit: NO Decision Time: 12:34
== END 2018-06-12 13:55 | disposition home or self-care (01) ==
LOC: ED 09:26
DX: I95.9 Hypotension, unspecified (principal); W19.XXXA Unspecified fall, initial encounter; Y93.9 Activity, unspecified; Y92.129 Unspecified place in nursing home as the place of occurrence of the external cause
CPT/HCPCS: 36415; 80053; 81002; 85025; 87400; 99283; J7030

== ENCOUNTER 2019-01-07 18:01 | Emergency (ER) | payer OTHER ==
[2019-01-07] MEDS ORDERED: Lidocaine 1% 5ml 10 MG/ML VIAL ONE (18:45)
[2019-01-07] MEDS ORDERED: SODIUM BICARBONATE 2.4 MEQ/5 ML VIAL INJ ONE (18:45)
[2019-01-07] MEDS ORDERED: DIPH,PERTUSS(ACELL),TET VAC/PF 0.5 ML DISP.SYRIN IM ONE (18:45)
== END 2019-01-07 19:28 | disposition home or self-care (01) ==
LOC: ED 18:01
DX: S01.81XA Laceration without foreign body of other part of head, initial encounter (principal); W06.XXXA Fall from bed, initial encounter
CPT/HCPCS: 12052; 90715; 99282